=== PATIENT | male | born 1975 | race Caucasian/White ===

== ENCOUNTER 2020-03-06 14:32 | Emergency (ER) | payer SELFPAY ==
[2020-03-06 14:39] VITALS: BP 144/101; PULSE 87; RESP 16; TEMP 36.8; O2SAT 97; BMI 29.5
--- NOTE | 2020-03-06 15:00 | ECG_ITS ---
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 Measurements Intervals [place] Rate: 85 P: 47 VT: 140 QRS: 35 QRSD: 100 T: 55 QT: 367 QTc: 437 Interpretive Statements SINUS RHYTHM No previous ECG available for comparison Electronically Signed On 03-06-2020 21:21:00 CDT by Shey Constantino M.D. [id number] f
--- NOTE | 2020-03-06 15:00 | XRR_ITS ---
PROCEDURE INFORMATION: Exam: XR Chest, 1 View Exam date and time: 03/06/2020 3:42 PM Age: 44 years old Clinical indication: Left-sided chest pain; Additional info: Chest pain since 03/02/20 TECHNIQUE: Imaging protocol: XR of the chest Views: 1 view. COMPARISON: No relevant prior studies available. FINDINGS: Lungs: Unremarkable. No consolidation. Vascularity is within normal limits. There are punctate calcified granulomata. Pleural space: Unremarkable. No pleural effusion. No pneumothorax. Heart/Mediastinum: There is mild cardiomegaly. Bones/joints: No acute abnormality. XR/XR chest 1V portable [id number] IMPRESSION: No acute findings.
--- NOTE | 2020-03-06 16:17 | ED_ITS ---
HPI - Chest Pain General: Chief Complaint: Chest Pain Stated Complaint: cp Time Seen by Provider: 03/06/20 16:03 History of Present Illness: HPI narrative: 44 yo male with chest pain for 4 days. She had intermittent upper abdominal pain for last 2 weeks she has been tired and fatigued with a headache he is now a have any shortness of breath or diaphoresis. He has no known history of coronary disease not previously had any stress testing. MD complaint: chest pain Onset (ago): day(s) (4) Timing of current episode: episodic Prior episodes: Yes Onset: during rest, during exertion and after eating Pain location: left chest Pain radiation: other (Epigastrium) Severity: moderate Quality: tightness and aching Relieving factors: nothing Exacerbating factors: nothing Associated symptoms: Reports abdominal pain, nausea and other (Fatigue); Deny dyspnea or fever(s) Treatment prior to arrival: none Review of Systems Const: Denies: fever(s), chills, body aches, change in appetite, fatigue or malaise ENMT: Denies: throat pain, ear or mastoid pain, nasal discharge or nasal congestion Card: Denies: chest pain, edema, dyspnea on exertion or orthopnea Resp: Denies: dyspnea, productive cough or non-productive cough GI: Reports: abdominal pain and nausea : Denies: flank pain, dysuria, urinary frequency or urinary urgency Skin/Breast: Denies: rash or pruritus PFSH ED PFSH: Medical History (Updated 03/07/20 @ 13:40 by Isiah Jacinto DO) Femur fracture Fx clavicle Hypertension Hypothyroidism Social History (Updated 03/07/20 @ 13:41 by Isiah Jacinto DO) Smoking and tobacco status: former smoker Quit status (tobacco): has quit using tobacco Year quit tobacco: 2 Alcohol intake: current Alcohol intake frequency: holidays/special occasions only Physical Exam Const: COMMON NORMALS: no acute distress GENERAL APPEARANCE: cooperative and comfortable ORIENTATION/CONSCIOUSNESS: Yes awake, Yes oriented to person, Yes oriented to place and Yes oriented to time HENMT: COMMON NORMALS: normocephalic and atraumatic HEAD & SCALP: normocephalic and atraumatic Eye: COMMON NORMALS: Equal, round and reactive pupils present, EOMs intact bilaterally, conjunctivae normal and no scleral icterus CONJUNCTIVA: Yes conjunctivae normal PUPIL: Yes Equal, round and reactive pupils present Neck/C-Spine: COMMON NORMALS: full ROM, no lymphadenopathy, supple and no JVD Lymph: LYMPHATIC: no lymphadenopathy noted and no lymphedema noted Resp: COMMON NORMALS: normal respiratory effort, No retractions, No use of accessory muscles and clear to auscultation bilaterally AUSCULTATION: clear to auscultation bilaterally Cardio: COMMON NORMALS: no JVD, regular rate, regular rhythm and No murmurs present (Cardio) RATE: regular rate RHYTHM: regular rhythm GI: COMMON NORMALS: Soft to palpation and No hepatosplenomegaly present AUSCULTATION: Yes normoactive bowel sounds PALPATION: Yes Soft to palpation, No Tenderness to palpation present (GI), No Guarding due to palpation present (GI) and Yes No hepatosplenomegaly present Extremity: COMMON NORMALS: normal to inspection, capillary refill normal, no clubbing, cyanosis or edema, no calf tenderness and no pedal edema Neuro: SENSORIUM/ORIENTATION: Yes oriented to person, Yes oriented to place and Yes oriented to time Skin: COMMON NORMALS: no rashes or lesions noted GENERAL SKIN EXAM: no rashes or lesions noted Course Vital Signs: Vital signs: Vital Signs Temperature 98.2 F 03/06/20 14:39 Pulse Rate 70 03/06/20 18:16 Respiratory Rate 18 03/06/20 18:16 Blood Pressure 140/78 03/06/20 18:16 Pulse Oximetry 100 03/06/20 18:16 MDM - Chest Pain MDM Narrative: Medical decision making narrative: Reviewed findings with the patient. He is 4 days with symptom with no EKG changes and normal troponin we will set him up for a graded exercise test have him start taking a baby aspirin daily return if has any problems Lab Data: Labs: Lab Results 03/06/20 03/06/20 03/06/20 Range/Units 16:26 16:26 16:26 WBC 12.4 H (4.0-10.0) 10^3/ uL RBC 5.19 (4.1-5.3) 10^6/u L Hgb 15.5 (11.7-16.6) g/dL Hct 45.0 (42.0-52.0) % MCV 86.7 (80-94) fL MCH 29.9 (28.0-34.0) pg MCHC 34.4 (30.0-36.0) g/dL RDW 11.9 L (12.1-15.1) % Plt Count 327 (130-400) 10^3/c mm MPV 9.7 (7.4-10.4) fL Neut % (Auto) 63.6 % Lymph % (Auto) 26.0 % [place] % (Auto) 7.9 % Eos % (Auto) 1.6 % Baso % (Auto) 0.5 % Neut # (Auto) 7.92 H (1.8-7.7) 10^3/u L Lymph # (Auto) 3.2 (0.8-4.8) 10^3/u L [place] # (Auto) 1.0 H (0.2-0.9) 10^3/u L Eos # (Auto) 0.2 (0.0-0.8) 10^3/u L Baso # (Auto) 0.1 (0.0-0.1) 10^3/u L Nucleated RBC % (a uto) 0 % Nucleated RBCs # 0.0 /100WBC Sodium 137 (136-145) mmol/L Potassium 3.7 (3.5-5.1) mmol/L Chloride 102 (98-107) mmol/L Carbon Dioxide 25 (22-29) mmol/L Anion Gap 13.7 (5-19) BUN 17 (6-20) mg/dL Creatinine 0.7 (0.7-1.2) mg/dL GFR Calculation 123.7 (90-130) mL/min Glucose 87 (65-115) mg/dL Calculated Osmolal ity 280 L (285-295) mOsm/k g Calcium 8.9 (8.5-10.5) mg/dL Total Bilirubin 0.2 (0.15-1.2) mg/dL AST 14 (0-40) U/L ALT 22 (0-41) U/L Alkaline Phosphata se 89 (40-130) IU/L Troponin T Baselin e 6 (0-15) ng/L Total Protein 6.9 (6.6-8.7) g/dL Albumin 4.1 (3.5-5.2) g/dL Globulin 2.8 (1.3-4.6) g/dL Discharge Plan Discharge Patient Disposition: Home Clinical Impression: Atypical chest pain Condition: Stable Prescriptions: New Adult Low Dose Aspirin 81 mg tablet,delayed release (DR/EC) 81 mg PO DAILY Qty: 30 RF: 0 No Action amlodipine 10 mg tablet 10 mg PO DAILY RF: 0 levothyroxine 50 mcg tablet 50 mcg PO DAILY RF: 0 Aleve 220 mg Tablet 440 mg PO PRN RF: 0 Advil 200 mg Tablet 600 mg PO PRN RF: 0 sertraline 25 mg tablet 25 mg PO DAILY RF: 0 Discharge Orders: Discharge Order (Routine); Ordered 03/06/20 Ordered By: Isiah Jacinto Discharge Diet: Usual diet Discharge Activity: Limit activity as instructed Activity Restrictions/Additional Instructions: Management will call to set you up for stress test. Discharge Date/Time: 03/06/20 18:17 Coding Level of Care Code ED Physician Assistant Psychiatry for Brayden Ramirez
[2020-03-06 16:32] LABS: Basophils # 0.1 10^3/uL (0.0-0.1); Basophils % 0.5 %; Eosinophils # 0.2 10^3/uL (0.0-0.8); Eosinophils % 1.6 %; Hemoglobin 15.5 g/dL (11.7-16.6); Lymphocytes # 3.2 10^3/uL (0.8-4.8); Mean Corpuscular HGB Conc 34.4 g/dL (30.0-36.0); Mean Corpuscular Hemoglobin 29.9 pg (28.0-34.0); Mean Corpuscular Volume 86.7 fL (80-94); Mean Platelet Volume 9.7 fL (7.4-10.4); Monocytes % 7.9 %; Neutrophils # 7.92 10^3/uL (1.8-7.7); Neutrophils % 63.6 %; Nucleated Red Blood Cells % 0 %; Platelet Count 327 10^3/cmm (130-400); Red Blood Count 5.19 10^6/uL (4.1-5.3); Red Cell Distribution Width 11.9 % (12.1-15.1); White Blood Count 12.4 10^3/uL (4.0-10.0)
[2020-03-06 16:55] LABS: Alanine Aminotransferase 22 U/L (0-41); Albumin Level 4.1 g/dL (3.5-5.2); Alkaline Phosphatase 89 IU/L (40-130); Anion Gap 13.7 (5-19); Aspartate Amino Transferase 14 U/L (0-40); Blood Urea Nitrogen 17 mg/dL (6-20); Calcium 8.9 mg/dL (8.5-10.5); Carbon Dioxide 25 mmol/L (22-29); Chloride 102 mmol/L (98-107); Globulin 2.8 g/dL (1.3-4.6); Glomerular Filtration Rate 123.7 mL/min (90-130); Glucose 87 mg/dL (65-115); Osmolality Calculated 280 mOsm/kg (285-295); Potassium 3.7 mmol/L (3.5-5.1); Sodium 137 mmol/L (136-145); Total Bilirubin 0.2 mg/dL (0.15-1.2); Total Protein 6.9 g/dL (6.6-8.7)
[2020-03-06 16:57] LABS: Troponin(5th) Baseline 6 ng/L (0-15)
[2020-03-06 18:16] VITALS: BP 140/78; PULSE 70; RESP 18; O2SAT 100
--- NOTE | 2020-03-07 09:08 | PC.SOCIAL ---
Referral needed for outpatient stress test. Called patient unable to reach. Contacted patient Vanessa to verify who PCP is that will get results. thought he has been seen at [facility]. Called [facility] and he has been seen once by Raegan Estrella [facility]. was interested in financial assistance application being sent out. This was done with note to indicate patient will need to follow up with Raegan Estrella for results of stress test once completed and that he can call the number on application if has questions regarding how to complete application. Faxed referral and called [facility] to let them know this was faxed.
--- NOTE | 2020-03-07 09:19 | PC.SOCIAL ---
Verified with Elinor in [facility] scheduling that order for stress test was received.
--- NOTE | 2020-03-08 10:07 | PC.SOCIAL ---
pt returned call. GAve him the number for [facility] to call and see when this is scheduled. This was repeated multiple times that after the stress test he will need to make appt with Raegan Estrella to follow up on results of test since the results will be sent to her.
--- NOTE | 2020-03-15 13:57 | DCPLANNER ---
Patient had a stress test scheduled for 03.14.20, patient did not attend the stress test.
== END 2020-03-06 18:17 | disposition home or self-care (01) ==
PROVIDERS: Emergency Provider Family Medicine
DX: R07.89 Other chest pain (principal); I10 Essential (primary) hypertension; Z87.891 Personal history of nicotine dependence
CPT/HCPCS: 12345; 36415; 71045; 80053; 84484; 85025; 93005; 99281; 99283

== ENCOUNTER 2020-11-16 10:35 | Outpatient (CLI) | payer SELFPAY ==
[2020-11-16 10:56] LABS: Viscosity Semen Droplets
[2020-11-16 11:06] LABS: Sperm Immotility 5 % (50-60); Sperm Non-Progressive Motility 20 % (5-10); Sperm Progressive Motility 75 % (31-34)
[2020-11-16 11:39] LABS: Pathology Referral Yes
== END 2020-11-16 10:36 | disposition home or self-care (01) ==
PROVIDERS: Visit Provider Nurse Practitioner Family
DX: N46.9 Male infertility, unspecified (principal)
CPT/HCPCS: 80500; 89320

== ENCOUNTER → 2021-01-17 10:01 | Outpatient (BNVA) | payer SELFPAY | PROVIDERS: PCP Nurse Practitioner Family; Visit Provider Urology | DX: N39.9 Disorder of urinary system, unspecified (principal); N46.11 Organic oligospermia; I10 Essential (primary) hypertension; E03.9 Hypothyroidism, unspecified | CPT/HCPCS: 81003; 83001; 84403 ==

== ENCOUNTER 2021-03-20 13:57 | Outpatient (CLI) | payer SELFPAY ==
[2021-03-20 15:25] LABS: Epithelial Count Semen 0-4 /hpf; Sperm Progressive Motility 30 % (31-34); Viscosity Semen Normal; Volume Semen 1.3 mL (2-5); White Blood Count Semen 0-4 /hpf
[2021-03-20 15:26] LABS: Pathology Referral Yes; Sperm Immotility 50 % (50-60); Sperm Non-Progressive Motility 20 % (5-10)
[2021-03-20 15:34] LABS: PH Semen 6.5 (7.0-8.0)
[2021-03-20 17:55] LABS: Sperm Vitality-% Live Sperm 31 %
[2021-03-20 17:59] LABS: Side 1 44; Side 2 49
== END 2021-03-20 13:58 | disposition home or self-care (01) ==
PROVIDERS: PCP Nurse Practitioner Family; Visit Provider Urology
DX: N46.11 Organic oligospermia (principal)
CPT/HCPCS: 80500; 89320

== ENCOUNTER 2022-10-12 18:20 | Emergency (ER) | payer MEDICAID, SELFPAY ==
[2022-10-12 18:27] VITALS: BP 135/89; PULSE 85; RESP 16; TEMP 36.8; O2SAT 95
--- NOTE | 2022-10-12 19:01 | ED_ITS ---
HPI - Extremity Problem General: Chief complaint: Extremity Injury, Upper Stated complaint: thumb lac Time Seen by Provider: 10/12/22 19:01 History of Present Illness: 47-year-old male patient was working on some cabinets today when he was using a router and caught the base of his right thumb against the blade. Patient has normal tendon function. Patient cannot recall his last tetanus. Patient appears nontoxic. Associated symptoms: Reports fever(s) Review of Systems Const: Reports: fever(s) ENMT: Denies: throat pain Resp: Denies: dyspnea GI: Denies: abdominal pain Skin/Breast: Reports: other (Laceration right thumb) COUNTS INCLUDE 234 BEDS AT THE [facility] ED PFS: Medical History (Updated 10/12/22 @ 19:35 by SAHIL Baker) Femur fracture Fx clavicle Hypertension Hypothyroidism Infertility Family History (System 03/05/21 @ 10:12 by Josie Walters) Mother Diabetes Hypertension Psychiatric illness Grandfather Cancer Social History (System 03/05/21 @ 10:12 by Josie Walters) Smoking and tobacco status: former smoker Quit status (tobacco): has quit using tobacco Year quit tobacco: 2 Alcohol intake: current Alcohol intake frequency: holidays/special occasions only Marital status: Current occupational status: employed Physical Exam Const: COMMON NORMALS: alert HENMT: COMMON NORMALS: normocephalic and Normal external nose present HEAD & SCALP: normocephalic NOSE: Normal external nose present Neck/C-Spine: COMMON NORMALS: full ROM Resp: COMMON NORMALS: normal respiratory effort Cardio: COMMON NORMALS: regular rate RATE: regular rate Back/Pelvis: COMMON NORMALS: thoracic and lumbar spine normal to inspection Extremity: RIGHT UPPER EXTREMITY: Yes hand & digits (3 cm irregular laceration dorsal thumb) Neuro: SENSORIUM/ORIENTATION: Yes alert Skin: COMMON NORMALS: turgor normal GENERAL SKIN EXAM: turgor normal TRAUMA: laceration (Irregular laceration dorsal thumb 3 cm right side) avulsion Procedures Laceration Laceration 1: Site: upper extremity (Right hand thumb) Size (cm): 3 Description: irregular Depth: simple, single layer Local Anesthetic: lidocaine 1% Amount of anesthesia used (mL): 4 Pre-repair: wound explored and irrigated extensively Skin layer closed with: nylon Size (cm): 4-0 Number of sutures: 6 Technique: simple, interrupted and horizontal mattress Course Vital Signs: Vital signs: Vital Signs Temperature 98.3 F 10/12/22 18:27 Pulse Rate 85 10/12/22 18:27 Respiratory Rate 16 10/12/22 18:27 Blood Pressure 135/89 10/12/22 18:27 Pulse Oximetry 95 10/12/22 18:27 Oxygen Delivery Me thod 10/12/22 18:27 MDM - Extremity (Nontraumatic) Medical Decision Making Patient came in due to injury to the right thumb. Patient sustained a laceration to his dorsal right thumb approximately 3 cm with avulsion of the skin and irregularity of the laceration. Normal tendon function, normal cap refill. Differential diagnosis includes but not limited to need for prophylaxis tetanus, laceration, tendon injury. No signs of foreign body or tendon injury was noted on exam. Reviewed exam with patient with recommendations for treatment and follow-up. Wound was irrigated and closed with 6 sutures. Patient tolerated well. Patient will be kept on Augmentin for prophylaxis antibiotic. Tetanus was updated. Reviewed recommendations for further treatment and evaluation. Patient stated understanding. Discharge Plan Discharge Patient Disposition: Home Clinical Impression: Laceration of finger Qualifiers: Encounter type: initial encounter Finger: thumb Damage to nail status: without damage Foreign body presence: without foreign body Laterality: right Qualified Code(s): S61.011A - Laceration without foreign body of right thumb without damage to nail, initial encounter Condition: Stable Prescriptions: New amoxicillin-pot clavulanate 875-125 mg tablet 1 tab PO BID Qty: 14 0RF No Action levothyroxine 50 mcg capsule 50 mcg PO DAILY amlodipine 10 mg tablet 10 mg PO DAILY sertraline 25 mg tablet 25 mg PO DAILY metoprolol succinate 50 mg tablet extended release 24 hr 50 mg PO DAILY sertraline 50 mg tablet 50 mg PO DAILY metoprolol succinate 50 mg tablet extended release 24 hr 50 mg PO DAILY One-A-Day Men's 50Plus(ginkgo) 400-300-120 mcg-mcg-mg tablet PO DAILY amlodipine 10 mg tablet 10 mg PO DAILY Rx Instructions: pt states he has been out of this medication since friday levothyroxine 50 mcg tablet 50 mcg PO DAILY Aleve 220 mg Tablet 440 mg PO PRN Advil 200 mg Tablet 600 mg PO PRN Adult Low Dose Aspirin 81 mg tablet,delayed release (DR/EC) 81 mg PO DAILY Qty: 30 0RF Discharge Orders: Discharge ED (Routine); Ordered 10/12/22 Ordered By: Eamon Hernandez Referrals: Raegan Estrella FNP [Primary Care Provider] - Discharge Diet: Usual diet Discharge Activity: Increase activity as tolerated Patient Instructions: Finger Laceration (ED) Activity Restrictions/Additional Instructions: Keep wound clean and dry. It is very important keep the wound and clean and dry as possible especially for the next 48 hours. After that you can clean the wound gently with mild soap and water. Apply antibiotic ointment and cover with dressing. Sutures need to come out in 7 to 10 days. Take oral antibiotic 1 tablet twice a day for the next 7 days. Follow-up with primary care in 1 week for recheck. Return to ED for new concerns. Coding Level of Care Code ED Electrical Prospecting Observer for Brayden Ramirez
[2022-10-12] MEDS: tetanus-dipt-pertussis 0.5 mL SDV IM (19:17)
[2022-10-12] MEDS: bacitracin ointment Pkt 1 EACH TOPICAL (19:18)
[2022-10-12] MEDS: amoxicillin-clav 875-125 mg Tablet 1 TAB PO (19:38)
== END 2022-10-12 19:41 | disposition home or self-care (01) ==
PROVIDERS: Emergency Provider Nurse Practitioner Family; PCP Nurse Practitioner Family
DX: S61.011A Laceration without foreign body of right thumb without damage to nail, initial encounter (principal); W45.8XXA Other foreign body or object entering through skin, initial encounter; Z23 Encounter for immunization
CPT/HCPCS: 12002; 90715; 99283

== ENCOUNTER 2024-03-22 11:27 | Emergency (ER) | payer SELFPAY ==
[2024-03-22] VITALS (9 sets, daily range): BP systolic 134–165; BP diastolic 81–110; PULSE 75–90; RESP 18–28; TEMP 36.6; O2SAT 92–95; BMI 36.5
--- NOTE | 2024-03-22 11:41 | ECG_ITS ---
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 Measurements Intervals [place] Rate: 84 P: 56 KS: 160 QRS: 31 QRSD: 94 T: 52 QT: 369 QTc: 437 Interpretive Statements SINUS RHYTHM Compared to ECG 03/06/2020 14:37:51 No significant changes Electronically Signed On 03-23-2024 7:38:42 CDT by Nikhil Rene M.D. [email or web address] regional health [email or web address] hospitals st. [facility].[employer]/store/NU/[id number] f
--- NOTE | 2024-03-22 12:11 | CT_ITS ---
WS: [id number] CT ABDOMEN PELVIS TECHNIQUE: Noncontrast CT of the abdomen and pelvis with coronal and sagittal reformatted images. CLINICAL INFORMATION: flank pain COMPARISON: None. DLP: 1003.[address] scans at [facility] use at least one of these dose optimization techniques: automated e xposure control; mA and/or kV adjustment per patient size (includes targeted exams where dose is matc hed to clinical indication); or iterative reconstruction. FINDINGS: Slight bibasal atelectasis. Normal GE junction. Air-fluid level in the distal stomach. Mild fluid dis tention of the stomach. Mild hepatomegaly with enlargement RIGHT hepatic lobe. Normal noncontrast spl een. Noncontrast pancreas appears normal. Adrenal glands are normal. Mild perinephric edema LEFT kidney with mild LEFT hydronephrosis with dilatation of the LEFT renal pe lvis. Mild LEFT ureterectasis with surrounding induration. Small calculus appears passed into the jaspreet dder measuring 5 mm. Chronic bilateral pars defects L5-S1 with slight anterolisthesis. Tiny fat-containing RIGHT inguinal hernia. Postoperative changes RIGHT proximal femur CT/CT kidney stone [id number] IMPRESSION: 1. Mild LEFT hydronephrosis with ureterectasis. LEFT ureter is dilated to the UVJ. Small calculus appears just passed into the bladder measuring 5 mm. 2. No obstructing RIGHT renal or ureteral calculi. 3. Mild hepatomegaly. 4. Chronic bilateral pars defects L5-S1 with slight grade 1 anterolisthesis. 5. No other acute findings.
--- NOTE | 2024-03-22 12:11 | ED_ITS ---
HPI - Back Pain/Injury 2 General: Chief Complaint: Back Pain/Injury Stated Complaint: low back pain / NV Time Seen by Provider: 03/22/24 11:55 Source: patient Mode of arrival: ambulatory Limitations: no limitations History of Present Illness: 48-year-old male states at 9 AM [facility] [place] back he started having severe left flank pain. States pain sharp in nature he is pains a 10 out of 10 he had nausea and vomiting with the pain. Denies any worse improving factors denies any pain to touch. No history of kidney stones in the past Associated symptoms: Reports nausea and vomiting; Deny abdominal pain, chills or fever(s) Related Data Home Medications Medication Instructions Recorded Confirmed ibuprofen 200 mg tablet (Advil) 600 mg PO Q6H PRN Pain 03/06/20 03/22/24 naproxen sodium 220 mg tablet 440 mg PO Q12H PRN Pain 03/06/20 03/22/24 (Aleve) amlodipine 10 mg tablet 10 mg PO DAILY 01/04/21 03/22/24 levothyroxine 50 mcg capsule 50 mcg PO DAILY 01/04/21 03/22/24 metoprolol succinate 50 mg 50 mg PO DAILY 01/17/21 03/22/24 tablet,extended release 24 hr qbnautss-khub-hrpnd acid 400 1 tab PO DAILY 01/17/21 03/22/24 mcg-lycopene 300 mcg-ginkgo 120 mg tablet (One-A-Day Men's 50 Plus (with ginkgo)) azelastine 137 mcg (0.1 %) nasal 2 spray intranasal BID ALLERGIES 03/22/24 03/22/24 spray levocetirizine 5 mg tablet 5 mg PO DAILY ALLERGIES 03/22/24 03/22/24 losartan 50 mg tablet 50 mg PO DAILY 03/22/24 03/22/24 sertraline 100 mg tablet 150 mg PO DAILY 03/22/24 03/22/24 Previous Rx's Medication Instructions Recorded aspirin 81 mg tablet,delayed 81 mg PO DAILY #30 tabs 03/06/20 release (Adult Low Dose Aspirin) hydrocodone 5 mg-acetaminophen 325 1 tab PO Q6H PRN pain #14 tabs 03/22/24 mg tablet ondansetron 4 mg disintegrating 4 mg PO Q6H PRN nausea and 03/22/24 tablet vomiting #14 tabs Allergies Allergy/AdvReac Type Severity Reaction Status Date / Time IRAM Inhibitors Allergy ALGY-Swell Verified 03/22/24 11:47 Lip/Tongue/Throat diphenhydramine Allergy ALGY-Swell Verified 03/22/24 11:47 [From Benadryl] Lip/Tongue/Throat lisinopril Allergy anaphylaxis Verified 03/22/24 11:47 Review of Systems 2 Const: Denies: fever(s), chills, body aches or change in appetite ENMT: Denies: throat pain or dental pain Card: Denies: chest pain Resp: Denies: dyspnea GI: Reports: nausea and vomiting; Denies: abdominal pain or diarrhea : Reports: flank pain and difficulty urinating Musc: Denies: neck pain or back pain Skin/Breast: Denies: rash Neuro: Denies: headache(s) PFSH ED 2 PFSH: Medical History Infertility Fx clavicle Femur fracture Hypothyroidism Hypertension Family History Mother Diabetes Hypertension Psychiatric illness Grandfather Cancer Social History Smoking and tobacco/nicotine status: former use of tobacco/nicotine Quit status (tobacco/nicotine): has quit using Year quit tobacco: 2 Alcohol intake: current Alcohol intake frequency: holidays/special occasions only Substance/Drug Use: never Marital status: Current occupational status: employed Physical Exam 2 Const: COMMON NORMALS: patient oriented x3 and healthy appearing HENMT: COMMON NORMALS: normocephalic and atraumatic HEAD & SCALP: n ormocephalic and atraumatic Eye: COMMON NORMALS: conjunctivae normal CONJUNCTIVA: Yes conjunctivae normal Neck/C-Spine: COMMON NORMALS: full ROM and supple Chest: COMMONS NORMALS: normal inspection of the chest Resp: COMMON NORMALS: normal respiratory effort Cardio: COMMON NORMALS: regular rate, regular rhythm and No murmurs present (Cardio) RATE: regular rate RHYTHM: regular rhythm GI: COMMON NORMALS: Normal to inspection, nondistended, normoactive bowel sounds present, Soft to palpation, non-tender and no masses PALPATION: Yes Soft to palpation Extremity: COMMON NORMALS: normal to inspection and full ROM Neuro: COMMON NORMALS: patient oriented x3, moves all extremities and no focal motor deficits Psych: COMMON NORMALS: mental status grossly normal, Normal thought process present and cooperative THOUGHT PROCESS: Normal thought process present Skin: COMMON NORMALS: no rashes or lesions noted and no wounds GENERAL SKIN EXAM: no rashes or lesions noted Course 2 Vital Signs: Vital signs: Vital Signs Temperature 97.9 F 03/22/24 11:38 Pulse Rate 82 03/22/24 14:00 Respiratory Rate 19 H 03/22/24 14:00 Blood Pressure 141/91 03/22/24 14:00 Pulse Oximetry 95 03/22/24 14:00 Oxygen Delivery Me thod Room Air 03/22/24 14:00 MDM - Back Pain/Injury Medical Decision Making Patient presents for flank pain does have a kidney stone like it is passed in his bladder his pain is much improved here no urinary tract patient is stable for discharge she is follow-up with urology will prescribe pain meds return if worsening. Medical Records I reviewed the patient's medical records. Labs I reviewed the patient's lab results. 03/22/24 12:15 03/22/24 12:15 Radiology Impressions Abdomen/Pelvis CT 03/22/24 12:11 IMPRESSION: 1. Mild LEFT hydronephrosis with ureterectasis. LEFT ureter is dilated to the UVJ. Small calculus appears just passed into the bladder measuring 5 mm. 2. No obstructing RIGHT renal or ureteral calculi. 3. Mild hepatomegaly. 4. Chronic bilateral pars defects L5-S1 with slight grade 1 anterolisthesis. 5. No other acute findings. Laboratory Results WBC 11.45 10^3/uL (3.29-11.43) H 03/22/24 12:15 RBC 5.34 10^6/uL (3.85-5.65) 03/22/24 12:15 Hgb 15.90 g/dL (11.27-16.99) 03/22/24 12:15 Hct 46.2 % (37-53) 03/22/24 12:15 MCV 86.5 fl (82-101) 03/22/24 12:15 MCH 29.8 pg (27-33) 03/22/24 12:15 MCHC 34.4 g/dL (30-55) 03/22/24 12:15 RDW 12.3 % (12.1-15.1) 03/22/24 12:15 Plt Count 351 10^3/cmm (157-399) 03/22/24 12:15 MPV 9.4 fL (7.4-10.4) 03/22/24 12:15 Neut % (Auto) 72.5 % 03/22/24 12:15 Lymph % (Auto) 18.0 % 03/22/24 12:15 [place] % (Auto) 7.7 % 03/22/24 12:15 Eos % (Auto) 0.8 % 03/22/24 12:15 Baso % (Auto) 0.3 % 03/22/24 12:15 Neut # (Auto) 8.30 10^3/uL (1.8-7.7) H 03/22/24 12:15 Lymph # (Auto) 2.1 10^3/uL (0.8-4.8) 03/22/24 12:15 [place] # (Auto) 0.9 10^3/uL (0.2-0.9) 03/22/24 12:15 Eos # (Auto) 0.1 10^3/uL (0.0-0.8) 03/22/24 12:15 Baso # (Auto) 0.0 10^3/uL (0.0-0.1) 03/22/24 12:15 Nucleated RBC % (auto) 0 % 03/22/24 12:15 Nucleated RBCs # 0.0 /100WBC 03/22/24 12:15 Sodium 139 mmol/L (136-145) 03/22/24 12:15 Potassium 3.9 mmol/L (3.5-5.1) 03/22/24 12:15 Chloride 102 mmol/L (98-107) 03/22/24 12:15 Carbon Dioxide 24 mmol/L (22-29) 03/22/24 12:15 Anion Gap 16.9 (5-19) 03/22/24 12:15 BUN 14 mg/dL (6-20) 03/22/24 12:15 Creatinine 0.9 mg/dL (0.7-1.2) 03/22/24 12:15 GFR Calculation 90.8 mL/min (90-130) 03/22/24 12:15 Glucose 157 mg/dL (65-115) H 03/22/24 12:15 Calculated Osmolality 292 mOsm/kg (285-295) 03/22/24 12:15 Calcium 9.0 mg/dL (8.5-10.5) 03/22/24 12:15 Total Bilirubin 0.3 mg/dL (0.15-1.2) 03/22/24 12:15 AST 16 U/L (0-40) 03/22/24 12:15 ALT 21 U/L (0-41) 03/22/24 12:15 Alkaline Phosphatase 139 U/L (40-130) H 03/22/24 12:15 Total Protein 7.6 g/dL (6.6-8.7) 03/22/24 12:15 Albumin 4.1 g/dL (3.5-5.2) 03/22/24 12:15 Globulin 3.5 g/dL (1.3-4.6) 03/22/24 12:15 Lipase 20 U/L (13-60) 03/22/24 12:15 Urine Color Dark yellow (Yellow) A 03/22/24 13:28 Urine Appearance Turbid (CLEAR) A 03/22/24 13:28 Urine pH 5.5 (5-7) 03/22/24 13:28 Ur Specific [place] 1.032 (1.005-1.030) H 03/22/24 13:28 Urine Protein 2+ (Negative) A 03/22/24 13:28 Urine Glucose (UA) Negative (Normal) 03/22/24 13:28 Urine Ketones 1+ (Negative) H 03/22/24 13:28 Urine Blood 2+ (Negative) A 03/22/24 13:28 Urine Nitrate Negative (Negative) 03/22/24 13:28 Urine Bilirubin Negative (Negative) 03/22/24 13:28 Urine Urobilinogen 1.0 mg/dL (Negative) 03/22/24 13:28 Ur Leukocyte Esterase Negative (Negative) 03/22/24 13:28 Urine RBC 11-20 /hpf (0-2) H 03/22/24 13:28 Urine WBC 0-5 /hpf (0-5) 03/22/24 13:28 Ur Squamous Epith Cells 0-5 /hpf (0-5) 03/22/24 13:28 Amorphous Sediment 4+ /hpf 03/22/24 13:28 Urine Bacteria None seen /hpf (NONE) 03/22/24 13:28 Hyaline Casts 1.21 /lpf 03/22/24 13:28 All radiology interpretation(s) finalized by discharge Discharge Plan Discharge Patient Disposition: Home Clinical Impression: Kidney stone Condition: Stable Prescriptions: New hydrocodone-acetaminophen 5-325 mg tablet 1 tab PO Q6H PRN (Reason: pain) Qty: 14 0RF ondansetron 4 mg tablet,disintegrating 4 mg PO Q6H PRN (Reason: nausea and vomiting) Qty: 14 0RF No Action levothyroxine 50 mcg capsule 50 mcg PO DAILY amlodipine 10 mg tablet 10 mg PO DAILY metoprolol succinate 50 mg tablet extended release 24 hr 50 mg PO DAILY One-A-Day Men's 50Plus(ginkgo) 400-300-120 mcg-mcg-mg tablet 1 tab PO DAILY naproxen sodium [Aleve] 220 mg Tablet 440 mg PO Q12H PRN (Reason: Pain) ibuprofen [Advil] 200 mg Tablet 600 mg PO Q6H PRN (Reason: Pain) aspirin [Adult Low Dose Aspirin] 81 mg tablet,delayed release (DR/EC) 81 mg PO DAILY Qty: 30 0RF losartan 50 mg tablet 50 mg PO DAILY sertraline 100 mg tablet 150 mg PO DAILY azelastine 137 mcg (0.1 %) spray,non-aerosol 2 spray INTRANASAL BID levocetirizine 5 mg tablet 5 mg PO DAILY Discharge Orders: Discharge ED (Routine); Ordered 03/22/24 Ordered By: Haydee Obando Referrals: Raegan Estrella FNP [Primary Care Provider] - Discharge Diet: Advance as tolerated Discharge Activity: Resume usual activity Patient Instructions: Kidney Stones (ED), How to Strain Your Urine (ED), Opioid Safety Coding Level of Care Code ED Computing Tutor for Brayden Ramirez
[2024-03-22] MEDS: HYDROmorphone 1 mg/mL INJ 1 mL IVP (12:18)
[2024-03-22] MEDS: ondansetron 2 mg/ML SDV 2 mL 4 MG IVP (12:21)
[2024-03-22 12:22] LABS: Basophils % 0.3 %; Eosinophils # 0.1 10^3/uL (0.0-0.8); Eosinophils % 0.8 %; Hematocrit 46.2 % (37-53); Lymphocytes # 2.1 10^3/uL (0.8-4.8); Mean Corpuscular HGB Conc 34.4 g/dL (30-55); Mean Corpuscular Hemoglobin 29.8 pg (27-33); Mean Corpuscular Volume 86.5 fl (82-101); Mean Platelet Volume 9.4 fL (7.4-10.4); Monocytes # 0.9 10^3/uL (0.2-0.9); Monocytes % 7.7 %; Neutrophils % 72.5 %; Nucleated Red Blood Cells % 0 %; Platelet Count 351 10^3/cmm (157-399); Red Blood Count 5.34 10^6/uL (3.85-5.65); Red Cell Distribution Width 12.3 % (12.1-15.1); White Blood Count 11.45 10^3/uL (3.29-11.43)
[2024-03-22] MEDS: ketorolac 30 mg/mL INJ 15 MG IVP (12:24)
[2024-03-22] MEDS: sodium chloride 0.9% 1,000 ML 999 ML IV (12:31)
[2024-03-22 12:46] LABS: Alanine Aminotransferase 21 U/L (0-41); Albumin Level 4.1 g/dL (3.5-5.2); Alkaline Phosphatase 139 U/L (40-130); Anion Gap 16.9 (5-19); Aspartate Amino Transferase 16 U/L (0-40); Blood Urea Nitrogen 14 mg/dL (6-20); Carbon Dioxide 24 mmol/L (22-29); Chloride 102 mmol/L (98-107); Creatinine Clr Calc Pharmacy 122.7002; Globulin 3.5 g/dL (1.3-4.6); Glomerular Filtration Rate 90.8 mL/min (90-130); Glucose 157 mg/dL (65-115); Lipase 20 U/L (13-60); Osmolality Calculated 292 mOsm/kg (285-295); Potassium 3.9 mmol/L (3.5-5.1); Sodium 139 mmol/L (136-145); Total Bilirubin 0.3 mg/dL (0.15-1.2); Total Protein 7.6 g/dL (6.6-8.7)
--- NOTE | 2024-03-22 12:50 | PC.NURSE ---
first ekg done in triage
[2024-03-22 13:34] LABS: Charge for UA Resulting for Rev
[2024-03-22 13:38] LABS: Bilirubin Urine Negative (Negative); Blood Urine 2+ (Negative); Glucose Urine UA Negative (Normal); Ketones Urine 1+ (Negative); Leukocyte Esterase Urine Negative (Negative); Nitrate Urine Negative (Negative); Protein Urine 2+ (Negative); Urine Appearance Turbid (CLEAR); Urine Color Dark Yellow (Yellow); pH Urine 5.5 (5-7)
[2024-03-22 13:40] LABS: Bacteria Urine None Seen /hpf; Hyaline Casts Urine 1.21 /lpf; Squamous Epithelial Cell Urine 0-5 /hpf (0-5); WBC Urine 0-5 /hpf (0-5)
[2024-03-22] MEDS: HYDROmorphone 1 mg/mL INJ 1 mL 0.5 MG IVP (13:43)
[2024-03-22 13:53] LABS: Specific Gravity, Urine 1.032 (1.005-1.030)
[2024-03-22 13:55] LABS: Add Urine Culture? Yes; Amorphous Sediment Urine 4+ /hpf
--- NOTE | 2024-03-25 07:35 | DCPLANNER ---
faxed er f/u to [facility] urology
== END 2024-03-22 14:12 | disposition home or self-care (01) ==
PROVIDERS: Emergency Provider Emergency Medicine; PCP Nurse Practitioner Family
DX: N13.2 Hydronephrosis with renal and ureteral calculous obstruction (principal); N21.0 Calculus in bladder; Z87.891 Personal history of nicotine dependence; I10 Essential (primary) hypertension; Z79.82 Long term (current) use of aspirin
CPT/HCPCS: 74176; 80053; 81003; 81015; 83690; 85025; 87086; 93005; 96374; 96375; 96376; 99285; J1170; J1885; J2405; J7030